=== PATIENT | female | born 1990 | race Caucasian/White ===

== ENCOUNTER 2016-12-10 14:23 | Emergency (ER) | payer OTHER ==
[2016-12-10] MEDS ORDERED: IPRATROPIUM/ALBUTEROL SULFATE 3 ML NEB NEB ONE ×2 (14:38→14:43)
[2016-12-10] MEDS ORDERED: DEXAMETHASONE PF 10 MG/1 ML VIAL IV ONE (14:43)
[2016-12-10] MEDS: Sodium Chloride 0.9% 1,000 ML PRIMARY IV ONE ×2 (15:07→16:00)
[2016-12-10] MEDS ORDERED: KETOROLAC 15 MG/1 ML VIAL IVP ONE (15:08)
[2016-12-10] MEDS ORDERED: ONDANSETRON 4 MG/2 ML VIAL IVP ONE (15:08)
[2016-12-10] MEDS ORDERED: Sodium Chloride 0.9% 1,000 ML PRIMARY IV ONE (15:08)
--- NOTE | 2016-12-10 15:14 | PDOC ---
Upper Respiratory HPI - General Chief Complaint: Cough / URI Stated Complaint: URI SYMPTOMS Date Seen by Provider: 12/10/16 Time Seen by Provider: 15:11 Source: POSITIVE: Patient Exam Limitations: POSITIVE: No limitations Nurse's Notes Reviewed & Considered: Yes - History of Present Illness Initial Comments: Patient comes in today with chief complaint of upper respiratory symptoms. She has had one week of increasing sore throat, cough, shortness of breath, and generally not feeling well. She is presently here from [place] for a wedding. She was actively involved in wedding parties over the weekend. She has subjective fevers, chills and sweats. She denies any hematuria or dysuria, no rashes. Smoker. Timing: REPORTS: Unknown Duration: Unknown Severity: Moderate Quality: REPORTS: Aching Modifying Factors: improves with: Rest, Exertion, Coughing Associated Symptoms: REPORTS: Fever, Chills, Runny Nose, Sore Throat, Hoarseness , Cough, Shortness of Breath Similar Symptoms Previously: No Recently seen/treated/hospitalized: No Any Prior Injuries Related to Current Complaint?: No - Patient Home Medications Home Medications: Home Medications Risperidone [Risperdal] 4 mg PO DAILY 12/10/16 - Patient Allergies Allergies/Adverse Reactions: Allergies Allergy/AdvReac Type Severity Reaction Status Date / Time Penicillins Allergy Severe Anaphylaxis Verified 12/10/16 14:36 ROS - Limitations ROS Limitations: No Limitations Constitution: REPORTS: Chills, Fever, Diaphoresis Cardiovascular: REPORTS: Denies Cardiac Symptoms Respiratory: REPORTS: Cough Non Productive, Shortness Of Breath Neurological: REPORTS: Headache Gastrointestinal: REPORTS: Denies GI Symptoms Endocrine: REPORTS: Denies Symptoms Musculoskeletal: REPORTS: Muscle Aches Eyes: REPORTS: Denies Symptoms ENT: REPORTS: Sore Throat Skin: REPORTS: Denies Skin Symptoms Lympathic: REPORTS: Denies Lympathic Symptoms Immunologic: POSITIVE: Denies Symptoms Psychiatric: POSITIVE: Denies Psych Symptoms Upper Respiratory/Fever Exam - General Appearance General Appearance: REPORTS: Alert, Cooperative, No Acute Distress, No Evidence of Trauma - HEENT HEENT: POSITIVE: Head Inspection Nml, Eyes Inspection Nml, Ears Inspection Nml, Nose Inspection Nml, Oral/Dental Inspect. Nml, Pharynx Inspect. Nml, PERRL, EOMI - Neck Neck: REPORTS: Normal Inspection, Supple - Respiratory Respiratory: REPORTS: No Respiratory Distress, Breath Sounds Normal, No Pleuritic Chest Pain, Speaks Full Sentences, No Pain on Inspiration - Abdomen Abdomen: Soft: (All Quadrants), Normal Bowel Sounds: (All Quadrants), Denies Tenderness: (All Quadrants), No Splenomegaly: (All Quadrants), No Hepatomegaly: (All Quadrants), No Guarding: (All Quadrants), No Rebound: (All Quadrants), No Palpable Pulse: (All Quadrants), No Palpabale Mass: (All Quadrants), No Distention: (All Quadrants), No Rigidity: (All Quadrants) - Cardiovascular Cardiovascular: REPORTS: Regular Rate and Rhythm, Heart Sounds Normal, No Murmur , No Gallop, No Friction Rub, No JVD - Skin Skin: REPORTS: Intact, Normal For Race, Warm, Dry, No Rash - Extremities Extremity: Non-Tender: (All Extremities), Normal ROM: (All Extremities), Normal Inspection: (All Extremities) - Neurological / Psychological Neurological: POSITIVE: Oriented X3, professional engineer Normal As Tested, Motor Normal, Sensation Normal, 5, 6 Upper Resp/Fever Progress - Results Reviewed by me Xrays/CTs/US Reviewed by me: Yes Discussed with Radiologist: Yes Lab Results Reviewed: Yes Lab Results:: Laboratory Results 12/10/16 Range/Units 15:21 WBC 9.11 (4.8-10.8) 10^3/uL RBC 4.87 (4.20-5.40) 10^6/uL Hgb 15.1 (12.0-16.0) g/dL Hct 44.4 (37.0-47.0) % MCV 91.2 (81-99) FL MCH 31.0 (27-31) PG MCHC 34.0 (33-37) g/dL RDW Std Deviation 42.4 (39-50) fL RDW Coeff of Reese 12.9 (11.5-14.5) % Plt Count 351 H (140-350) 10*3/uL MPV 9.7 (7.4-12.2) FL Immature Gran % (Auto) 0.2 (0-5) % Neut % (Auto) 61.4 (50-80) % Lymph % (Auto) 27.0 (10-50) % [place] % (Auto) 9.1 (5-15) % Eos % (Auto) 1.8 (0-8) % Baso % (Auto) 0.5 (0-1) % Immature Gran # (Auto) 0.02 10*3/UL Neut # (Auto) 5.59 10*3/UL Lymph # (Auto) 2.46 10*3/uL [place] # (Auto) 0.83 H (0.3-0.8) 10*3/UL Eos # (Auto) 0.16 10*3/UL Baso # (Auto) 0.05 10*3/UL WBC Morphology Comment Normal morphology (NORM) Plt Morphology Comment Normal morphology (NORM) RBC Morph Comment Normal morphology (NORM) Sodium 145 (135-145) meq/L Potassium 3.5 L (3.8-5.2) meq/L Chloride 103 (98-112) meq/L Carbon Dioxide 25 (23-33) meq/L Anion Gap 17 (5-20) BUN 9 (7-22) mg/dL Creatinine 0.6 (0.50-1.20) mg/dL Estimated GFR > 60 (>60 ml/min/1.73m(2)) BUN/Creatinine Ratio 15.00 (6-20) Glucose 114 H (78-110) mg/dL Calculated Osmolality 299.0 H (267-292) mOsm/kg Calcium 9.0 (8.7-10.7) mg/dL Magnesium 2.0 (1.6-2.4) mg/dL Total Bilirubin 0.4 (0.3-1.2) mg/dL AST 23 (8-39) IU/L ALT 25 (9-52) IU/L Alkaline Phosphatase 73 (38-126) IU/L Total Protein 8.2 H (6.1-8.0) g/dL Albumin 4.4 (3.5-4.8) g/dL Globulin 3.8 (2.50-4.10) g/dL Albumin/Globulin Ratio 1.10 L (1.3-2.0) mg/g Serum HCG, Qual Positive Monoscreen Negative (NEG) - Patient's Progress Re-Examine Time: 16:15 Status: POSITIVE: Improved MDM / ED Course: Patient was evaluated, an IV started, blood drawn and sent to the lab for studies, radiographic examination was obtained. Findings: CBC is unremarkable, comprehensive metabolic panel is unremarkable, chest x-ray is a normal chest radiograph, beta hCG is positive. Assessment: #1 Upper respiratory infection likely viral. #2 Plan: Discharge home, Tylenol as needed, rest, increase fluids, stop smoking. Follow-up with OB gynecology upon return to home. Air Movement: Good Antibiotics Given: No Nebulizer Treatment Given:: No - Consult Counseled: POSITIVE: Patient, RE: Lab Results, RE: Radiology Results, RE: DX, RE : Need for F/U Patient Care Time - Estimated PCT Patient Care Time (In Minutes): 30 Vital Signs - VS Reviewed Vital Signs Reviewed: Yes Discharge Clinical Impression: Upper respiratory infection, Discharge Disposition: Discharged to Home Condition: Stable Patient Instructions Given at Discharge: Upper Respiratory Infection (ED), (ED)
[2016-12-10 15:28] LABS: BASOPHILS # (AUTO) 0.05 10*3/UL; BASOPHILS % (AUTO) 0.5 % (0-1); EOSINOPHILS # (AUTO) 0.16 10*3/UL; EOSINOPHILS % (AUTO) 1.8 % (0-8); HEMATOCRIT 44.4 % (37.0-47.0); HEMOGLOBIN 15.1 g/dL (12.0-16.0); LYMPHOCYTES # (AUTO) 2.46 10*3/uL; MEAN CORPUSCULAR VOLUME 91.2 FL (81-99); MEAN PLATELET VOLUME 9.7 FL (7.4-12.2); MONOCYTES # (AUTO) 0.83 10*3/UL (0.3-0.8); MONOCYTES % (AUTO) 9.1 % (5-15); NEUTROPHILS # (AUTO) 5.59 10*3/UL; NEUTROPHILS % (AUTO) 61.4 % (50-80); RED BLOOD COUNT 4.87 10^6/uL (4.20-5.40)
[2016-12-10 15:30] LABS: PLATELET MORPHOLOGY COMMENT NORMAL MORPHOLOGY (NORM); RBC MORPHOLOGY COMMENT NORMAL MORPHOLOGY (NORM); WBC MORPHOLOGY COMMENT NORMAL MORPHOLOGY (NORM)
[2016-12-10 15:40] LABS: BLOOD UREA NITROGEN 9 mg/dL (7-22); EST GLOMERULAR FILTRATION > 60 (>60 ml/min/1.73m(2))
[2016-12-10 15:41] LABS: SERUM ALBUMIN 4.4 g/dL (3.5-4.8)
--- NOTE | 2016-12-10 16:03 | DI ---
PA /LATERAL CHEST X-RAY, 12/10/2016 3:08 PM : Clinical History: Fever Previous Exam: None at this facility. There is no acute soft tissue or bony abnormality. Heart size is normal. Lungs are clear. Mediastinal structures are normal. There are no pulmonary nodules. IMPRESSION: Normal chest x-ray.
[2016-12-10 17:17] VITALS: RESP 20; TEMP 96.6
== END 2016-12-10 16:50 | disposition home or self-care (01) ==
LOC: ER 14:23
DX: J06.9 Acute upper respiratory infection, unspecified (principal); R05 Cough; R06.02 Shortness of breath; R50.9 Fever, unspecified; J02.9 Acute pharyngitis, unspecified; Z33.1 Pregnant state, incidental
CPT/HCPCS: 71020; 80053; 83735; 84703; 85025; 86308; 86738; 94640; 96361; 96374; 96375; 99283 ×2; J7620; J1100; J1885; J2405; J7030